=== PATIENT | male | born 1990 | race Caucasian/White ===

== ENCOUNTER 2020-02-06 06:56 | Emergency (ER) | payer BC, SELFPAY ==
--- NOTE | ~2020-02-06 | US_ITS ---
EXAMINATION: US scrotum doppler DATE: 02/06/2020 08:08 INDICATION: Testicular pain. TECHNIQUE: Grayscale and Doppler ultrasound images of the testes were obtained. COMPARISON: None. FINDINGS: The right testis measures 4.3 x 1.9 x 3.1 cm. The left testis measures 3.6 x 1.7 x 3.1 cm. There is normal vascular flow to both testes. A 5 mm hypoechoic mass abuts the right epididymis, like ly benign. The right epididymis demonstrates normal vascular flow. The left epididymis is normal with normal vascular flow. There is no varicocele or hydrocele. IMPRESSION: 1. No etiology for the patient's symptoms. Reviewed, dictated and finalized at location A. TALIZER OPERATOR
--- NOTE | ~2020-02-06 | CT_ITS ---
EXAMINATION: CT abd pelvis lumbar wo con DATE: 02/06/2020 08:13 INDICATION: Right flank and groin pain. TECHNIQUE: Computed tomography (CT) of the abdomen and pelvis and lumbar spine was performed without intravenous contrast. Automated exposure control and iterative reconstruction technique were employed . The dose-length product was 476.06 mGy-cm. COMPARISON: None FINDINGS: CT ABDOMEN AND PELVIS: The visualized portions of the lung bases demonstrate 5 nodules in left lower lobe measuring up to 7 mm. No pleural effusion. The heart size is normal. No pericardial effusion. Th e liver, gallbladder, spleen, pancreas, adrenal glands, and kidneys are normal. There is no urolithia sis. There are no dilated loops of bowel. The appendix is normal. There are no pathologically enlarge d lymph nodes. There is no free intraperitoneal fluid. CT LUMBAR SPINE: Bone alignment is normal. Vertebral body heights and intervertebral disc heights are normal. The following disc levels are specifically discussed: L1-L2: The disc does not extend beyond the endplate margin. There is mild bilateral facet joint osteo arthritis. There is no neural foraminal stenosis. There is no central canal stenosis. L2-L3: The disc is bulging. There is mild bilateral facet joint osteoarthritis. There is mild bilater al neural foraminal stenosis. There is no central canal stenosis. L3-L4: The disc is bulging. There is mild bilateral facet joint osteoarthritis. There is mild bilater al neural foraminal stenosis. There is no central canal stenosis. L4-L5: The disc is bulging. There is mild bilateral facet joint osteoarthritis. There is mild bilater al neural foraminal stenosis. There is mild central canal stenosis. L5-S1: The disc is bulging. There is moderate right and mild left facet joint osteoarthritis. There i s mild bilateral neural foraminal stenosis. There is mild central canal stenosis. IMPRESSION: 1. No urolithiasis. 2. Mild lumbar spondylosis. 3. Small nodules in left lung lower lobe, likely infection. Reviewed, dictated and finalized at location A. NESS OBJECTS CONSULTANT
[2020-02-06 07:00] VITALS: BP 148/89; PULSE 60; RESP 20; TEMP 37; O2SAT 97
[2020-02-06 07:48] LABS: Basophils Absolute Auto 0.04 K/mm3 (0.00-0.10); Basophils Percent Auto 0.5 % (0.0-1.0); Eosinophils Absolute Auto 0.11 K/mm3 (0.02-0.50); Eosinophils Percent Auto 1.5 % (1.0-6.0); Hematocrit 40.3 % (40.0-54.0); Hemoglobin 13.1 g/dL (14.0-18.0); Immature Granulocyte Absolute 0.01 K/mm3 (0.00-0.00); Immature Granulocyte Percent A 0.1 % (0.0-0.0); Lymphocytes Absolute Auto 1.36 K/mm3 (1.10-4.50); Lymphocytes Percent Auto 18.6 % (18.0-42.0); Mean Corpuscular HGB Conc 32.5 g/dL (32.0-36.0); Mean Corpuscular Hemoglobin 29.4 pg (27.0-31.0); Mean Corpuscular Volume 90.4 fL (78.0-102.0); Mean Platelet Volume 8.6 fl (8.7-11.0); Monocytes Absolute Auto 0.38 K/mm3 (0.10-0.90); Monocytes Percent Auto 5.2 % (2.0-11.0); Neutrophils Absolute Auto 5.4 K/mm3 (1.7-7.2); Neutrophils Percent Auto 74.1 % (50.0-70.0); Platelet Count Result 203 K/mm3 (150-420); Red Blood Count 4.46 M/mm3 (4.70-6.10); Red Cell Distribution Width 12.1 % (11.6-14.4); White Blood Count 7.3 K/mm3 (4.8-10.8)
[2020-02-06 08:13] LABS: Alanine Aminotransferase 51 U/L (16-63); Albumin Level 4.4 g/dL (3.4-5.0); Alkaline Phosphatase 75 U/L (46-116); Anion Gap 11 mmol/L (8-16); Aspartate Amino Transferase 50 U/L (15-37); Bilirubin,Total 0.4 mg/dL (0.00-1.00); Blood Urea Nitrogen 17 mg/dL (7-18); Calcium 8.8 mg/dL (8.5-10.1); Carbon Dioxide 26 mmol/L (21-32); Chloride 102 mmol/L (98-108); Estimated CRCL calculation 125 ml/min; Estimated Glomerular Filt Rate > 60; Glucose 126 mg/dL (70-99); Osmolality Calculated 291 mOsm/kg (285-295); Potassium 4.1 mmol/L (3.5-5.1); Sodium 139 mmol/L (136-145); Total Protein 7.9 g/dL (6.4-8.2)
[2020-02-06] MEDS: SODIUM CHLORIDE 0.9% IV 1,000 ML 999 ML IV CONT (08:23)
[2020-02-06] MEDS: ONDANSETRON INJ 4 MG/2 ML VIAL IV PUSH (08:23)
[2020-02-06] MEDS: KETOROLAC 30 MG/ML VIAL (*BKC) IV PUSH (08:24)
[2020-02-06 08:48] LABS: Add Urine Microscopic? NO; Appearance Urine Clear (Clear); Bilirubin Urine Negative (Negative); Blood Urine Negative (Negative); Color Urine Yellow (Yellow); Glucose Urine UA Negative (Negative); Ketones Urine Negative (Negative); Leukocyte Esterase Ur Negative (Negative); Nitrate Urine Negative (Negative); Protein Urine Negative (Negative); Specific Grav Ur 1.025 (1.010-1.020); Urobilinogen Urine 0.2 mg/dL (0.2-1.0)
--- NOTE | 2020-02-06 08:53 | ED.MALEGU ---
HPI - Male Genitourinary General Chief complaint: Urogenital-Male Stated complaint: r testicle pain Source: patient Mode of arrival: ambulatory Limitations: no limitations History of Present Illness HPI Narrative: This is a 29-year-old male presents with right testicular pain with some some mild right flank pain and discomfort with no dysuria no fever chills no hematuria pain started earlier this morning and is rated about an 8/10, with no abdominal pain does have some nausea and no vomiting with no fever chills no chest pain no shortness of breath no testicular scrotal injuries. MD Complaint: testicle pain Onset (ago): hour(s) Duration: intermittent Location: right testicle Severity: moderate Severity scale (1-10): 8 Quality: aching Relieving factors: none Exacerbating factors: none Associated symptoms: Reports nausea/vomiting Related Data Allergies Allergy/AdvReac Type Severity Reaction Status Date / Time No Known Allergies Allergy Unverified 12/01/14 15:35 Review of Systems Review of Systems: All systems reviewed & are unremarkable except as noted in HPI and below PMFSH Past Medical History Medical History Patient denies medical problems Exam Const: General: healthy appearing, no acute distress, alert and confusion Limitations: altered mental status HENMT: Head: normal to inspection Eyes: Conjunctivae: conjunctivae normal Pupils: Equal, round and reactive pupils present EOM: EOMs intact bilaterally Neck: Neck: normal visual inspection, no lymphadenopathy and no meningeal signs Chest: Chest palpation & inspection: normal inspection of the chest Resp: Effort & Inspection: normal respiratory effort Cardio: Rate: regular rate Rhythm: regular rhythm GI: GI Palp: Yes Soft to palpation : Testes: epididymal tenderness and testicular tenderness Other: right testicular discomfort and pain with palpation with a negative Borger needs test Urinary Catheter: Urinary Catheter: patent and draining Back/Spine/Pelvis: Back: no CVA tenderness and CVA tenderness Skin: General skin exam: normal color Rashes: no rashes Neuro: General: patient oriented x3 and moves all extremities Psych: Mental Status: mental status grossly normal Course Course Emergency Course: patient received Toradol and pain level down to a 3/10 from 8/10, nausea has improved I reviewed the CT scan and ultrasound of the testicles with the patient and family and advised follow-up with primary care physician for possible referral to urology. Vital Signs Vital signs: Vital Signs Temperature 37.0 C 02/06/20 07:00 Pulse Rate 60 02/06/20 07:00 Respiratory Rate 20 02/06/20 07:00 Blood Pressure 148/89 H 02/06/20 07:00 Pulse Oximetry 97 02/06/20 07:00 Temperature 37.0 C 02/06/20 07:00 Pulse Rate 60 02/06/20 07:00 Respiratory Rate 20 02/06/20 07:00 Blood Pressure 148/89 H 02/06/20 07:00 Pulse Oximetry 97 02/06/20 07:00 MDM - Male Genitourinary Lab Data Result diagrams: 02/06/20 07:29 02/06/20 07:29 Labs: Lab Results 02/06/20 02/06/20 02/06/20 Range/Units 07:29 07:29 08:43 WBC 7.3 (4.8-10.8) K/mm3 RBC 4.46 L (4.70-6.10) M/mm3 Hgb 13.1 L (14.0-18.0) g/dL Hct 40.3 (40.0-54.0) % MCV 90.4 (78.0-102.0) fL MCH 29.4 (27.0-31.0) pg MCHC 32.5 (32.0-36.0) g/dL RDW 12.1 (11.6-14.4) % Plt Count 203 (150-420) K/mm3 MPV 8.6 L (8.7-11.0) fl Immature Gran % (Auto) 0.1 H (0.0-0.0) % Neut % (Auto) 74.1 H (50.0-70.0) % Lymph % (Auto) 18.6 (18.0-42.0) % [place] % (Auto) 5.2 (2.0-11.0) % Eos % (Auto) 1.5 (1.0-6.0) % Baso % (Auto) 0.5 (0.0-1.0) % Lymph # (Auto) 1.36 (1.10-4.50) K/mm3 [place] # (Auto) 0.38 (0.10-0.90) K/mm3 Eos # (Auto) 0.11 (0.02-0.50) K/mm3 Baso # (Auto) 0.04 (0.00-0.10) K/mm3 Abs Immat Gran (auto) 0.01 H (0.00-0.00
[2020-02-06 08:55] VITALS: BP 148/89; PULSE 87; RESP 20; TEMP 37.1; O2SAT 98
== END 2020-02-06 09:01 | disposition home or self-care (01) ==
PROVIDERS: Emergency Provider Emergency Medicine
DX: N45.1 Epididymitis (principal)
CPT/HCPCS: 36415; 72131; 74176; 76870; 80053; 81003; 85025; 93976; 96361; 96374; 96375; 99283; 99284; J1885; J2405; J7030

== ENCOUNTER 2020-02-06 13:55 | Emergency (ER) | payer BC, SELFPAY ==
[2020-02-06] VITALS (10 sets, daily range): BP systolic 140–157; BP diastolic 77–107; PULSE 66–67; RESP 15–18; TEMP 37.1; O2SAT 98–100
--- NOTE | ~2020-02-06 | CT_ITS ---
EXAMINATION: CT abdomen pelvis w con DATE: 02/06/2020 15:15 INDICATION: Right lower quadrant abdominal pain TECHNIQUE: Computed tomography (CT) of the abdomen and pelvis was performed with 100 cc Omnipaque 350 intravenous contrast. Automated exposure control and iterative reconstruction technique were employe d. Exam dose: 473.73 mGy-cm total exam DLP. COMPARISON: 02/06/2020 CT abdomen pelvis lumbar without contrast material 02/06/2020 scrotal ultrasound FINDINGS: Calcified 6.5 mm left lower lobe pulmonary granuloma (series 4 image 2). 5 mm left lower lobe nodule (image 14). Normal heart size. No pericardial or pleural effusion. No hepatic, splenic, pancreatic, and adrenal or renal space-occupying lesion is evident. Normal caliber of the abdominal aorta. No intraperitoneal or retroperitoneal or pelvic mass lesion or adenopathy or ascites. The urinary bladder, prostate gland and seminal vesicles are unremarkable. There is minimal free fluid in the dependent right pelvis. Normal appendix. Mild diverticulosis of the sigmoid colon; no CT evidence of diverticulitis. No bowel obstruction, bowel wall thickening, pneumatosis or intraperitoneal free air. Included skeletal structures are unremarkable. IMPRESSION: Normal appendix Mild diverticulosis of the sigmoid colon Reviewed, dictated and finalized at Location A. Reviewed, dictated and finalized at location B. IANCE FIXER
--- NOTE | 2020-02-06 14:11 | ED.ABDPAIN ---
HPI - Abdominal Pain General Chief Complaint: Urogenital-Male Stated Complaint: right testicle/rlq pain Time Seen by Provider: 02/06/20 13:58 Source: patient and family Mode of arrival: ambulatory Limitations: no limitations History of Present Illness HPI narrative: 29 years old white male presents with right lower quadrant pain radiating to right testicle and right back. This started yesterday around noon. Associated with nausea and intermittent vomiting. Patient denies any fever, chills, similar symptoms, urinary symptoms. Patient went to [facility] at [address] abdomen and pelvis without contrast showed: No kidney stone, mild lumbar spondylosis, small nodules in left lung lower lobe, likely infection. Scrotum ultrasound showed No etiology for the patient's symptoms. Patient was discharged on antibiotics and oxycodone. Patient left [facility] and came to our emergency room because he still in pain Related Data Allergies Allergy/AdvReac Type Severity Reaction Status Date / Time No Known Allergies Allergy Verified 02/06/20 14:16 Review of Systems Review of Systems: Narrative: CONSTITUTIONAL: Denies fever, chills, or sweats. EYES: Denies visual changes, redness, or discharge. ENT: Denies rhinorrhea, congestion, sore throat, or otalgia. CARDIOVASCULAR: Denies chest pain, palpitations, or edema. RESPIRATORY: Denies cough or dyspnea. GASTROINTESTINAL: Right lower quadrant pain GENITOURINARY: Denies dysuria or hematuria. SKIN: Denies rash or itching. MUSCULOSKELETAL: Denies back pain, joint pain, or myalgia. NEUROLOGIC: Denies headache, numbness, or weakness. PSYCHIATRIC: Denies anxiety or depression. All systems reviewed & are unremarkable except as noted in HPI and below PMFSH Past Medical History Medical History Patient denies medical problems Social History Social History Gender identity (if verbalized by the patient): Male Exam Narrative: Exam Narrative: General appearance: Well-developed, well-nourished Skin: Normal color Head: Normocephalic, nontraumatic Eyes: Clear conjunctiva ENT: Oropharynx normal, ears normal, nose normal Neck: Supple, nontender Chest and respiratory: Airway patent, no respiratory distress, no accessory muscle use Heart: Regular rate/rhythm Abdomen: Soft, right lower quadrant tenderness, no organomegaly, quiet bowel sounds, testicular exam showed no significant abnormality. Vascular: Normal peripheral pulses, normal capillary refill. 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 Prior to the beginning of his symptoms. Date: 02/06/20 Time: 16:10 Vital Signs Vital signs: Vital Signs Temperature 37.1 C 02/06/20 13:59 Pulse Rate 67 02/06/20 13:59 Respiratory Rate 18 02/06/20 13:59 Blood Pressure 157/102 H 02/06/20 13:59 Pulse Oximetry 98 02/06/20 13:59 Temperature 37.1 C 02/06/20 13:59 Pulse Rate 67 02/06/20 13:59 Respiratory Rate 18 02/06/20 13:59 Blood Pressure 157/102 H 02/06/20 13:59 Pulse Oximetry 98 02/06/20 13:59 MDM - Abdominal Pain MDM Narrative Medical decision making narrative: Right lower quadrant pain radiating to right testicle. my differential diagnosis Differential Diagnosis Differential diagnosis: Likely acu
[2020-02-06] MEDS: MORPHINE SULFATE (*CRX) 4 MG/ML INJ IV PUSH (14:16)
[2020-02-06] MEDS: SODIUM CHLORIDE 0.9% IV 1,000 ML 999 ML IV CONT (14:16)
[2020-02-06] MEDS: ONDANSETRON INJ 4 MG/2 ML VIAL IV PUSH (14:16)
[2020-02-06 14:18] LABS: Basophils Percent Auto 0.4 % (0.2-1.2); Eosinophils Percent Auto 0.2 % (0-4.4); Hematocrit 42.9 % (42.0-52.0); Hemoglobin 14.5 g/dL (14.0-18.0); Immature Granulocyte Absolute 0.03 K/mm3 (0.00-0.031); Immature Granulocyte Percent A 0.3 % (0-0.5); Lymphocytes Absolute Auto 1.43 K/mm3 (0.9-3.2); Lymphocytes Percent Auto 15.2 % (18.3-44.2); Mean Corpuscular HGB Conc 33.8 g/dl (32-36); Mean Corpuscular Hemoglobin 30.1 pg (26-34); Mean Platelet Volume 8.9 fl (7.4-10.4); Monocytes Absolute Auto 0.6 K/mm3 (0.1-0.6); Monocytes Percent Auto 6.8 % (2.6-8.5); Neutrophils Absolute Auto 7.2 K/mm3 (1.3-6.7); Neutrophils Percent Auto 77.1 % (45.5-73.1); Platelet Count Result 222 k/mm3 (150-375); Red Blood Count 4.82 M/mm3 (4.6-6.20); White Blood Count 9.4 K/mm3 (4.5-10.0)
[2020-02-06 14:30] LABS: Add Urine Microscopic? YES; Amorphous Sediment Urine Few; Appearance Urine Cloudy (Clear); Bacteria Urine Trace /hpf; Bilirubin Urine Negative (Negative); Blood Urine Negative (Negative); Color Urine Yellow (Yellow); Glucose Urine UA Negative (Negative); Ketones Urine Negative (Negative); Leukocyte Esterase Ur Negative LEU/UL (Negative); Mucus Urine Heavy /lpf; Nitrate Urine Negative (Negative); Protein Urine 1+ mg/dL (Negative); RBC Urine 0-2 /hpf (0-2); Specific Grav Ur 1.027 (1.001-1.035); Squamous Epithelial Cell Urine Rare /hpf (Few); Urobilinogen Urine Negative mg/dL (<2.0)
[2020-02-06 14:33] LABS: Alanine Aminotransferase 48 U/L (4-50); Albumin Level 5.1 g/dL (3.5-5.1); Alkaline Phosphatase 77 U/L (38-126); Anion Gap 10 mmol/L (8-16); Aspartate Amino Transferase 52 U/L (17-59); Bilirubin,Total 0.5 mg/dL (0.2-1.3); Blood Urea Nitrogen 15 mg/dL (9-20); Calcium 9.6 mg/dL (8.4-10.2); Carbon Dioxide 30 mmol/L (22-30); Chloride 103 mmol/L (98-107); Estimated CRCL calculation 157 ml/min; Estimated Glomerular Filt Rate > 60; Glucose 124 mg/dL (75-110); Lipase 50 U/L (23-300); Potassium 3.9 mmol/L (3.4-5.0); Sodium 143 mmol/L (137-145)
--- NOTE | 2020-02-06 14:40 | PC.NURSE ---
patient resting on stretcher. here with right testicle and right lower abdomen pain. see triage notes. alert. oriented. has had pain meds but no relief yet. will discuss with provider.
--- NOTE | 2020-02-06 15:07 | PC.NURSE ---
patient to CT via stretcher.
[2020-02-06] MEDS: KETOROLAC 30 MG/ML VIAL (*BKC) IV PUSH (15:38)
--- NOTE | 2020-02-06 15:48 | PC.NURSE ---
patient back from CT. has been resting in room. discussed continued pain with provider. CT report reviewed. Toradol given as ordered. SO present. call light in reach.
== END 2020-02-06 16:38 | disposition home or self-care (01) ==
PROVIDERS: Emergency Provider Emergency Medicine
DX: R10.31 Right lower quadrant pain (principal); K57.30 Diverticulosis of large intestine without perforation or abscess without bleeding; R91.8 Other nonspecific abnormal finding of lung field; M47.816 Spondylosis without myelopathy or radiculopathy, lumbar region
CPT/HCPCS: 36415; 74177; 80053; 81001; 83690; 85025; 96361; 96374; 96375; 99284; J1885; J2270; J2405; J7030; Q9967

== ENCOUNTER 2020-02-07 14:53 | Outpatient (NON) | payer BC, SELFPAY | END 2020-02-07 14:54 | LOC: CHSLAB 14:54 | PROVIDERS: Visit Provider Family Medicine | DX: N50.811 Right testicular pain (principal) | CPT/HCPCS: 87491; 87591 ==

== ENCOUNTER 2020-07-28 14:08 | Outpatient (CLI) | payer BC, SELFPAY ==
[2020-07-28 14:52] LABS: SARS-CoV-2 Ag Negative (Negative)
== END 2020-07-28 14:09 | disposition home or self-care (01) ==
LOC: CHSLAB 14:11
PROVIDERS: PCP Family Medicine; Visit Provider Family Medicine
DX: Z20.822 Contact with and (suspected) exposure to COVID-19 (principal)
CPT/HCPCS: 87426; C9803